=== PATIENT | male | born 1990 | race Caucasian/White ===

== ENCOUNTER 2019-03-29 06:02 | Observation (INO) ==
[2019-03-29 06:52] LABS: Basophils # 0.1 K/mcL (0.0-0.2); Basophils % 0.9 %; Eosinophils # 0.1 K/mcL (0.0-0.6); Eosinophils % 0.8 %; Hematocrit 49.5 % (37.5-50.1); Hemoglobin 16.7 g/dL (12.9-16.9); Immature Granulocytes % 0.4 % (0-4); Lymphocytes # 1.4 K/mcL (0.6-4.6); Lymphocytes % 17.9 %; Mean Corpuscular HGB Conc 33.7 g/dL (31.6-35.5); Mean Corpuscular Hemoglobin 29.9 pg (28.0-33.3); Mean Corpuscular Volume 88.6 fL (83.0-100.0); Mean Platelet Volume 9.8 fL (9.4-12.4); Monocytes # 0.5 K/mcL (0.0-1.3); Monocytes % 6.9 %; Neutrophils # 5.6 K/mcL (1.6-8.9); Platelet Count 278 K/mcL (140-400); Red Blood Count 5.59 M/mcL (4.19-5.50); Red Cell Distribution Width 12.4 % (11.5-14.5); Segmented Neutrophils % 73.1 %; White Blood Count 7.7 K/mcL (4.3-11.1)
--- NOTE | 2019-03-29 06:58 | Emergency Department Note ---
Disposition Clinical Impression: Biliary colic Intractable nausea and vomiting Qualifiers: Vomiting type: unspecified Qualified Code(s): R11.2 - Nausea with vomiting, unspecified Disposition: Admitted As Inpatient Condition: Fair Time of Disposition: 10:48 Abdominal Pain HPI - General Chief Complaint: ED Abdominal Pain Stated Complaint: Abd. Pain Time Seen by Provider: 03/29/19 06:18 Source: patient, family Mode of arrival: private vehicle Limitations: no limitations Nursing Notes Reviewed: Yes Vital Signs Reviewed: Yes - History of Present Illness HPI Narrative: Patient presents from home for evaluation of upper abdominal pain with nausea and vomiting for two weeks This is his third ER visit for the same. He was at [facility] last Thursday and had a CT done. He states that he was not diagnosed with anything but was given pain meds and nausea meds and sent home. Pt Subjective Complaint: abdominal pain Onset (ago): week(s) Consistency: constant, Worsening Location: diffuse, RUQ, epigastric Pain Severity: moderate Pain Scale: 6 Quality: cramping, aching, fullness Radiation: none Migration to: no migration Improves with: nothing Worsens with: vomiting Context: other (3rd visit for same - was seen at [facility] twice - states, "No diagnosis") Associated symptoms: Reports: nausea, vomiting, diarrhea, fever, chills. Denies: constipation, dysuria, hematemesis, hematochezia, melena, hematuria, anorexia, syncope Treatments prior to arrival: other (seen at [facility] twice. Had CT done Thursday. No results yet. ) - Related Data Home Medications Medication Instructions Recorded Confirmed Lisinopril [Zestril] 10 mg PO DAILY 03/29/19 03/29/19 Allergies Allergy/AdvReac Type Severity Reaction Status Date / Time Erythromycin Base Allergy See Verified 03/29/19 06:11 [From Pediazole] Comments Sulfa (Sulfonamide Allergy See Verified 03/29/19 06:11 Antibiotics) Comments Sulfisoxazole Allergy See Verified 03/29/19 06:11 [From Pediazole] Comments All systems ED: reviewed and negative except as stated. Review of Systems: As Per HPI Constitutional: Reports: as per HPI, fever, chills. Denies: weakness, weight change, night sweats Eyes: Denies: eye pain, eye discharge, vision change ENT ED: Denies: throat pain, congestion, dysphagia Cardiovascular: Denies: chest pain, palpitations, dyspnea on exertion Respiratory: Denies: cough, dyspnea, wheezes Gastrointestinal: Reports: as per HPI, abdominal pain, nausea, vomiting, diarrhea. Denies: constipation, hematemesis, melena, hematochezia Genitourinary: Denies: urgency, dysuria, frequency, hematuria, discharge, testicular pain, testicular mass Musculoskeletal: Denies: back pain, neck pain, joint swelling, arthralgia Integumentary: Denies: rash, lesions, pruritus Neurological: Denies: headache, weakness, vertigo Hematological/Lymphatic: Denies: easy bleeding, easy bruising, lymphadenopathy Abdominal Pain PMH - Past Medical History Medical history: Reports: hypertension Male Surgical History: Reports: appendectomy Psychiatric history: Reports: no psych history - Social History Smoking status: Never smoker Alcohol use: Reports: heavy Drug use: Reports: none Physical Exam - General Limitations: no limitations General appearance: alert, in no apparent distress - Head Head exam: atraumatic, normocephalic, normal inspection - Eye Eye exam: Present: normal appearance. Absent: scleral icterus, conjunctival injection, periorbital swelling - ENT ENT exam: mucous membranes dry - Neck Neck exam: Present: normal inspection, full ROM, trachea midline. Absent: meningismus, lymphadenopathy - Respiratory Respiratory exam: Present: normal lung sounds bilaterally. Absent: respiratory distress - Cardiovascular Cardiovascular exam: Present: regular rate, normal rhythm, normal heart sounds - Abdominal Exam Abdominal exam: Present: soft, tenderness, distention, diminished bowel sounds, Desir's sign. Absent: guarding, rebound, rigidity, Rovsing's sign, tenderness at McBurney's Point, ascites, mass, pulsatile mass, hernia - Extremities Exam Extremities exam: Present: normal inspection, full ROM. Absent: pedal edema - Back Exam Back exam: Present: normal inspection. Absent: CVA tenderness (R), CVA tenderness (L) - Neurological Exam Neurological exam: Present: alert, oriented X3, CN II-XII intact, normal gait - Psychiatric Psychiatric exam: Present: normal affect, normal mood - Skin Skin exam: Present: warm, dry, intact, normal color Course Course Narrative: Patient to the ED with family for evaluation of two weeks of abdominal pain with nausea, vomiting and intermittent diarrhea. The emesis has been bilious. No hematemesis, melena or hematochezia. He has had subjective fever and chills. On exam, he has normal vitals with the exception of mildly elevated blood pressure. He has a history of hypertension but has not been able to keep his BP medication down. He is afebrile. He is reclining on the bed, appears uncomfortable but nontoxic. He has tenderness to palpation in the right upper quadrant with positive Desir sign. No guarding or rebound tenderness. Records from [facility] were obtained. He had a normal CAT scan done on Thursday. This is his third visit for the same. Ultrasound and nausea meds ordered. Patient declines pain meds. ". Ultrasound shows biliary sludge and mild wall thickening, no pericholecystic fluid. Possible left lung effusion. The radiologist recommends PA and lateral chest x-ray and hepatobiliary scan. Patient's T bili is elevated. The remainder of his labs are unremarkable. He continues to have nausea and vomiting despite the Zofran. Additional meds ordered. He is also now requesting pain medication. This has been ordered. The surgicalist has been paged for consult. Case discussed with Dr. Pablito Guzman. She will accept the patient for admission. Vital Signs Temperature 98.2 F 03/29/19 06:12 Pulse Rate 90 03/29/19 06:12 Respiratory Rate 18 03/29/19 06:12 Blood Pressure 149/105 03/29/19 06:12 O2 Sat by Pulse Oximetry 98 03/29/19 06:12 Temperature 98.2 F 03/29/19 06:12 Pulse Rate 90 03/29/19 06:12 Respiratory Rate 18 03/29/19 06:12 Blood Pressure 149/105 03/29/19 06:12 O2 Sat by Pulse Oximetry 98 03/29/19 06:12 Oxygen Delivery Oxygen Delivery Room Air Abdominal Pain - Medical Records Medical records reviewed: Yes I reviewed the patient's medical records. - Lab Data Lab results reviewed: Yes I reviewed the patient's lab results. Lab results narrative: Laboratory Last Values WBC 7.7 K/mcL (4.3-11.1) 03/29/19 06:17 RBC 5.59 M/mcL (4.19-5.50) H 03/29/19 06:17 Hgb 16.7 g/dL (12.9-16.9) 03/29/19 06:17 Hct 49.5 % (37.5-50.1) 03/29/19 06:17 MCV 88.6 fL (83.0-100.0) 03/29/19 06:17 MCH 29.9 pg (28.0-33.3) 03/29/19 06:17 MCHC 33.7 g/dL (31.6-35.5) 03/29/19 06:17 RDW 12.4 % (11.5-14.5) 03/29/19 06:17 Plt Count 278 K/mcL (140-400) 03/29/19 06:17 MPV 9.8 fL (9.4-12.4) 03/29/19 06:17 Immature Gran % 0.4 % (0-4) 03/29/19 06:17 Seg Neutrophils % 73.1 % 03/29/19 06:17 Lymphocytes % 17.9 % 03/29/19 06:17 Monocytes % 6.9 % 03/29/19 06:17 Eosinophils % 0.8 % 03/29/19 06:17 Basophils % 0.9 % 03/29/19 06:17 Neutrophils # 5.6 K/mcL (1.6-8.9) 03/29/19 06:17 Lymphocytes # 1.4 K/mcL (0.6-4.6) 03/29/19 06:17 Monocytes # 0.5 K/mcL (0.0-1.3) 03/29/19 06:17 Eosinophils # 0.1 K/mcL (0.0-0.6) 03/29/19 06:17 Basophils # 0.1 K/mcL (0.0-0.2) 03/29/19 06:17 Sodium 139 mEq/L (136-145) 03/29/19 06:17 Potassium 3.8 mEq/L (3.5-5.1) 03/29/19 06:17 Chloride 100 mEq/L (98-107) 03/29/19 06:17 Carbon Dioxide 26 mEq/L (23-29) 03/29/19 06:17 BUN 10 mg/dL (6-20) 03/29/19 06:17 Creatinine 1.05 mg/dL (0.70-1.30) 03/29/19 06:17 Est GFR ( Amer) > 60 (> 60) 03/29/19 06:17 Est GFR (Non-Af Amer) > 60 (> 60) 03/29/19 06:17 BUN/Creatinine Ratio 10 (6-26) 03/29/19 06:17 Glucose 142 mg/dL (70-105) H 03/29/19 06:17 Calculated Osmolality 289 (280-300) 03/29/19 06:17 Calcium 9.7 mg/dL (8.6-10.3) 03/29/19 06:17 Total Bilirubin 1.3 mg/dL (0.3-1.0) H 03/29/19 06:17 Direct Bilirubin 0.1 mg/dL (0.0-0.2) 03/29/19 06:17 Indirect Bilirubin 1.2 mg/dL (0.0-1.2) 03/29/19 06:17 AST 20 Units/L (13-39) 03/29/19 06:17 ALT 20 Units/L (7-52) 03/29/19 06:17 Alkaline Phosphatase 64 Units/L (34-104) 03/29/19 06:17 Serum Total Protein 7.4 g/dL (6.4-8.9) 03/29/19 06:17 Albumin 4.7 g/dL (3.5-5.7) 03/29/19 06:17 Globulin 2.7 g/dL (2.4-3.5) 03/29/19 06:17 Albumin/Globulin Ratio 1.7 (1.1-2.2) 03/29/19 06:17 Amylase 23 Units/L (29-103) L 03/29/19 06:17 Lipase 10 Units/L (11-82) L 03/29/19 06:17 Urine Color Yellow (Yellow) 03/29/19 09:40 Urine Clarity Clear (Clear) 03/29/19 09:40 Urine pH 7.0 pH Units (5.0-8.0) 03/29/19 09:40 Ur Specific Centre 1.018 (1.010-1.025) 03/29/19 09:40 Urine Protein Negative mg/dL (Neg-Trace) 03/29/19 09:40 Urine Glucose (UA) Normal mg/dL (Normal) 03/29/19 09:40 Urine Ketones Negative mg/dL (Negative) 03/29/19 09:40 Urine Blood Negative (Negative) 03/29/19 09:40 Urine Nitrite Negative (Negative) 03/29/19 09:40 Urine Bilirubin Negative (Negative) 03/29/19 09:40 Urine Urobilinogen Normal mg/dL (Normal) 03/29/19 09:40 Ur Leukocyte Esterase Negative (Negative) 03/29/19 09:40 Ur Culture Indicated? NO (NO) 03/29/19 09:40 - Radiology Data Radiology results reviewed: Yes I reviewed the patient's radiology results. Gallbladder Ultrasound 03/29/19 07:38 IMPRESSION: Biliary sludge without stones. Mild gallbladder wall thickening however the gallbladder is partially contracted. Recommend nuclear medicine better biliary scan if there is strong clinical suspicion for gallbladder disease. Suspected left pleural effusion. Recommend further evaluation with PA and lateral upright departmental chest radiographs. RECOMMENDATIONS: Hepatobiliary scan. PA and lateral chest x-ray. D/ / Buddy Ma MD / Buddy Ma MD Interpreting Provider: Buddy Ma MD Chest X-Ray 03/29/19 09:31 IMPRESSION: No acute process. D/ / Tiffanie Scott MD / Tiffanie Scott MD Interpreting Provider: Tiffanie Scott MD
[2019-03-29 07:04] LABS: Alanine Aminotransferase 20 Units/L (7-52); Albumin 4.7 g/dL (3.5-5.7); Albumin/Globulin Ratio 1.7 (1.1-2.2); Alkaline Phosphatase 64 Units/L (34-104); Amylase 23 Units/L (29-103); Aspartate Amino Transferase 20 Units/L (13-39); BUN/Creatinine Ratio 10 (6-26); Bilirubin,Direct 0.1 mg/dL (0.0-0.2); Bilirubin,Indirect 1.2 mg/dL (0.0-1.2); Bilirubin,Total 1.3 mg/dL (0.3-1.0); Blood Urea Nitrogen 10 mg/dL (6-20); Calcium 9.7 mg/dL (8.6-10.3); Carbon Dioxide 26 mEq/L (23-29); Chloride 100 mEq/L (98-107); Globulin 2.7 g/dL (2.4-3.5); Glucose 142 mg/dL (70-105); Lipase 10 Units/L (11-82); Osmolality,Calculated 289 (280-300); Potassium 3.8 mEq/L (3.5-5.1); Sodium 139 mEq/L (136-145); Total Protein 7.4 g/dL (6.4-8.9); eGFR For African Americans > 60 (> 60); eGFR For Non-African Americans > 60 (> 60)
[2019-03-29] MEDS ORDERED: 0.9 % Sodium Chloride 1,000 ML IVC ONE ×2 (07:41→10:47)
[2019-03-29] MEDS ORDERED: Ondansetron 4 MG/2 ML VIAL IVP ONE ×2 (07:41→19:03)
[2019-03-29 09:50] LABS: Bilirubin,Urine Negative (Negative); Blood,Urine Negative (Negative); Clarity,Urine Clear (Clear); Color,Urine Yellow (Yellow); Glucose,Urine (UA) Normal (Normal); Ketones,Urine Negative (Negative); Leukocyte Esterase,Urine Negative (Negative); Nitrite,Urine Negative (Negative); Protein,Urine Negative (Neg-Trace); Specific Gravity,Urine 1.018 (1.010-1.025); Urobilinogen,Urine Normal (Normal)
[2019-03-29] MEDS ORDERED: Promethazine 25 MG in 0.9 % Sodium Chloride 50 ML IVPB ONE (10:47)
[2019-03-29] MEDS ORDERED: *HR* HYDROmorphone (PF) 1 MG/ML SYRINGE IVP ONE (10:47)
--- NOTE | 2019-03-29 14:25 | Acute Care Surgery H&P ---
Date of Encounter: 03/29/19 Time of Encounter: 14:20 Assessment and Plan (1) Symptomatic cholelithiasis Current Visit: Yes Status: Acute The assessment and plan as outlined above was discussed with the patient and/or family members who expressed understanding and agreement. All questions were answered. Pt diagnosis of symptomatic cholelithiasis is discussed. Laparoscopic Cholecystectomy is recommended. Procedure for the surgery, risks and benefits are discussed in detail. Possible known complications for Laparoscopic Cholecystectomy are bleeding, infection, bile duct injury, bile leak, small intestine or stomach injury, stroke, DVT/PE, OH or . Pt understands these risks, which in this case are . Pt wishes to proceed with surgery as soon as possible. Informed consent is obtained. Pt condition is stable. Surgery is scheduled. (2) Biliary colic Current Visit: Yes Status: Acute The assessment and plan as outlined above was discussed with the patient and/or family members who expressed understanding and agreement. All questions were answered. History of Present Illness Chief complaint: RUQ abdominal pain HPI: This 29 y/o male pt presents to [facility] ED after 2 visits to [facility] ED on 2 previous occasions in the last week c/o severe RUQ abdominal pain. Pt reports pain is severe and unrelenting. Pt c/o epigastric pain as well. Pt reports pain radiates into back. Pt reports intractable nausea and vomiting. Pt denies changes in BM. Pt denies CP or SOB. Pt denies fever. Past Med Surg Social Fam HX - Past Medical History Medical history: hypertension Psychiatric history: no psych history - Social History Smoking Status: Never smoker Smokeless Tobacco Status: Yes Alcohol use: heavy Drug use: none - Family History Father Hx Family Cardiac Disorders: Yes (HTN, HLD) Hx Family Endocrine Disorder: Yes (DM) Mother Hx Family Cardiac Disorders: Yes (HLD, HTN) Medications and Allergies Lisinopril [Zestril] 10 mg PO DAILY 03/29/19 [History] 3 Allergy/AdvReac Type Severity Reaction Status Date / Time Erythromycin Base Allergy See Verified 03/29/19 06:11 [From Pediazole] Comments Sulfa (Sulfonamide Allergy See Verified 03/29/19 06:11 Antibiotics) Comments Sulfisoxazole Allergy See Verified 03/29/19 06:11 [From Pediazole] Comments Review of Systems All systems PM: The remainder of the systems were reviewed and are negative - Constitutional as per HPI, fatigue, no anorexia, no chills, no fever(s), no night sweats, no weakness - EENT Nose, mouth and throat: dry mouth, nasal congestion, nasal discharge, sinus pain, sinus pressure, sore throat, no dysphagia - Cardiovascular no chest pain, no diaphoresis, no dyspnea, no edema - Respiratory no cough, no dyspnea, no wheezing - Gastrointestinal abdominal pain, bloating, diarrhea, nausea, vomiting, no constipation, no hematemesis, no hematochezia - Genitourinary no difficulty urinating, no dysuria, no flank pain, no urinary frequency - Musculoskeletal no back pain, no joint swelling, no limited range of motion, no neck pain - Integumentary dry skin, no pruritus, no rash, no wounds, no jaundice - Neurological no confusion, no dizziness, no focal weakness, no weakness - Psychiatric no anxiety, no depression - Endocrine fatigue - Hematologic/Lymphatic no easy bleeding, no easy bruising General Surgery Exam Initial Vital Signs Temp Pulse Resp BP Pulse Ox 98.2 F 90 18 149/105 98 03/29/19 06:12 03/29/19 06:12 03/29/19 06:12 03/29/19 06:12 03/29/19 06:12 - General physical appearance no distress, moderate pain. negative: jaundice - Eyes PERRL, normal ocular movement. negative: icteric - ENT no congestion, dry mucosa. negative: nasal discharge - Neck no masses, trachea midline, no lymphadectomy, no venous distension - Respiratory normal expansion, normal respiratory effort - Cardiovascular Cardiovascular exam: Present: RRR. Absent: JVD - Abdomen Abdomen general surgery: Present: bowel sounds present, soft, tender. Absent: distended Abdominal Tenderness: Present: RUQ - Genitourinary Present: normal penis with no external lesions - Integumentary Integumentary general surgery: Present: warm and dry - Neurologic Present: CN 2-12 grossly intact, normal coordination - Musculoskeletal Present: normal posture - Psychiatric Psychiatric general surgery: Present: A&Ox3, appropriate Results - Labs 03/29/19 06:17 03/29/19 06:17 Abnormal lab results RBC 5.59 M/mcL (4.19-5.50) H 03/29/19 06:17 Glucose 142 mg/dL (70-105) H 03/29/19 06:17 Total Bilirubin 1.3 mg/dL (0.3-1.0) H 03/29/19 06:17 Amylase 23 Units/L (29-103) L 03/29/19 06:17 Lipase 10 Units/L (11-82) L 03/29/19 06:17 Diabetes panel 03/29/19 Range/Units 06:17 Sodium 139 (136-145) mEq/L Potassium 3.8 (3.5-5.1) mEq/L Chloride 100 (98-107) mEq/L Carbon Dioxide 26 (23-29) mEq/L BUN 10 (6-20) mg/dL Creatinine 1.05 (0.70-1.30) mg/dL Glucose 142 H (70-105) mg/dL Calcium 9.7 (8.6-10.3) mg/dL AST 20 (13-39) Units/L ALT 20 (7-52) Units/L Alkaline Phosphatase 64 (34-104) Units/L Albumin 4.7 (3.5-5.7) g/dL Calcium panel 03/29/19 Range/Units 06:17 Calcium 9.7 (8.6-10.3) mg/dL Albumin 4.7 (3.5-5.7) g/dL Pituitary panel 03/29/19 Range/Units 06:17 Sodium 139 (136-145) mEq/L Potassium 3.8 (3.5-5.1) mEq/L Chloride 100 (98-107) mEq/L Carbon Dioxide 26 (23-29) mEq/L BUN 10 (6-20) mg/dL Creatinine 1.05 (0.70-1.30) mg/dL Glucose 142 H (70-105) mg/dL Calcium 9.7 (8.6-10.3) mg/dL Adrenal panel 03/29/19 Range/Units 06:17 Sodium 139 (136-145) mEq/L Potassium 3.8 (3.5-5.1) mEq/L Chloride 100 (98-107) mEq/L Carbon Dioxide 26 (23-29) mEq/L BUN 10 (6-20) mg/dL Creatinine 1.05 (0.70-1.30) mg/dL Glucose 142 H (70-105) mg/dL Calcium 9.7 (8.6-10.3) mg/dL Total Bilirubin 1.3 H (0.3-1.0) mg/dL AST 20 (13-39) Units/L ALT 20 (7-52) Units/L Alkaline Phosphatase 64 (34-104) Units/L Albumin 4.7 (3.5-5.7) g/dL All other labs normal. - Imaging CT scan - abdomen: report reviewed CT scan - pelvis: report reviewed US - abdomen: image reviewed (Biliary sludge without stones. Mild gallbladder wall thickening however the gallbladder is partially contracted.) - VTE Reasons for not Prescribing Prophylaxis: Treatment not Indicated - Low risk for VTE
[2019-03-29] MEDS ORDERED: 0.9 % Sodium Chloride 1,000 ML IVC SCH (14:30)
[2019-03-29] MEDS ORDERED: Acetaminophen IV 1,000 MG/100 ML INFUS..BTL IVPB SCH (18:00)
--- NOTE | 2019-03-29 19:00 | Anesthesia Evaluation PreOp ---
Date of Encounter: 03/29/19 Time of Encounter: 19:00 - Past History Planned Operation: Lap Cholecystectomy Cardiac History: HTN Pulmonary History: Denies Any Significant HX OVER THE ROAD DRIVER History: Denies Any Significant HX Other Medical History: Denies Any Significant HX, Other (Obese) Anesthesia History: No Prior Anesthetic Complications Alcohol Use: rarely Drug use: none Medications and Allergies Lisinopril [Zestril] 10 mg PO DAILY 03/29/19 [History] Allergy/AdvReac Type Severity Reaction Status Date / Time Erythromycin Base Allergy See Verified 03/29/19 06:11 [From Pediazole] Comments Sulfa (Sulfonamide Allergy See Verified 03/29/19 06:11 Antibiotics) Comments Sulfisoxazole Allergy See Verified 03/29/19 06:11 [From Pediazole] Comments - Meds/Allergy Pre-op Review Medications Reviewed: Yes Allergies Reviewed: Yes Beta Blockers on Current Med List: No Anesthesia Results - Labs 03/29/19 06:17 03/29/19 06:17 Anesthesia Exam O2 Sat Height 1.75 m Weight 119.748 kg Weight 117.934 kg O2 Sat by Pulse Oximetry 95 O2 Sat by Pulse Oximetry 94 O2 Sat by Pulse Oximetry 99 O2 Sat by Pulse Oximetry 97 O2 Sat by Pulse Oximetry 98 O2 Sat by Pulse Oximetry 99 O2 Sat by Pulse Oximetry 98 O2 Sat by Pulse Oximetry 100 O2 Sat by Pulse Oximetry 99 O2 Sat by Pulse Oximetry 99 O2 Sat by Pulse Oximetry 98 O2 Sat by Pulse Oximetry 98 Vital Signs Temp Pulse Resp BP Pulse Ox 98.2 F 90 18 149/105 98 03/29/19 06:12 03/29/19 06:12 03/29/19 06:12 03/29/19 06:12 03/29/19 06:12 Height: 5'9 Weight: 264 lbs - HEENT Pupil (Motor): Pupils equal, EOMI Mallampati: III Teeth: Normal Oral Opening: Less than or equal to 3 - OVER THE [address] DRIVER LOC: Oriented OVER THE ROAD DRIVER Motor: Normal RUE, Normal LUE, Normal RLE, Normal LLE, Normal Face OVER THE ROAD DRIVER Sensory: Normal: RUE, LUE, RLE, LLE, Face - Cardiac Rhythm: Regular Murmur: None JVD: No Carotid Bruit: No - Pulmonary Breath Sounds: bilateral Clear Respiratory Effort: Symmetrical Anesthesia Assess/Plan ASA Score: 2 Level of consciousness: Cooperative, Oriented Anesthetic Plan: General Autologous Blood: No Monitoring Plan: Standard Monitors Recovery Plan: PACU (Discussed GA, agrees to proceed)
[2019-03-29] MEDS ORDERED: *HR* OxyCODONE Immed Rel 5 MG TABLET PO PRN (19:03)
[2019-03-29] MEDS ORDERED: *HR* HYDROmorphone (PF) 1 MG/ML SYRINGE IVP PRN (19:03)
[2019-03-29] MEDS ORDERED: *HR* Promethazine 25 MG/ML VIAL IVP PRN ×2 (19:03→21:16)
[2019-03-29] MEDS ORDERED: Famotidine 20 MG/2 ML VIAL ONE (19:07)
--- NOTE | 2019-03-29 19:14 | Operative Note ---
Date of procedure: 03/29/19 Pre-op diagnosis: symptomatic cholelithiasis Post-op diagnosis: same Procedure: Laparoscopic cholecystectomy Complications: none Anesthesia: GETA Surgeon: Harvey Guzman Was there an mobile sales assistant present: Yes Cement Storage Worker: Torie Adorno Estimated blood loss (cc): 10 Specimen: gallbladder Condition: stable Disposition: PACU Procedure in Detail: This 29 year-old male was taken to the operating room and placed in the supine position. The anterior abdominal wall is prepped and draped in the usual sterile fashion. A 1-2 cm curvilinear incision is made in the infraumbilical area and subcutaneous tissue was dissected down to anterior rectus fascia. Fascia is grasped with a Noreen clamp, stay sutures were placed in the fascia is divided. Posterior rectus fascia and peritoneum were elevated and divided in the same manner. A Lefty port is inserted. Under direct visualization after the injection of 0.5% Marcaine the x3 5 mm ports are inserted in the right subcostal space under direct visualization. Exploration of the intraabdominal cavity reveals an abnormal gallbladder. The patient is placed in reverse Trendelenburg position and rotated to the left. The gallbladder is grasped and retracted in cephalad direction. It is also grasped and retracted in the lateral direction. The cystic duct was carefully identified circumferentially dissected doubly clipped and divided between clips. The cystic artery is carefully identified and circumferentially dissected and divided between clips. The gallbladder is dissected off the liver bed using electrocautery. Hemostasis was perfected using electrocautery. The gallbladder is removed from the intra-abdominal cavity using an Endo Catch bag. Copious irrigation is carried out in the intra- abdominal cavity, Booker's pouch and the gallbladder fossa. The pneumoperitoneum was allowed to escape under direct visualization. The ports were removed also under direct visualization. The fascia at the infraumbilical incision is closed using 0 Vicryl sutures. All skin incisions are closed using 4-0 Monocryl subcuticular stitches. Steri-Strips are placed. Sterile dressing is placed. Patient tolerated procedure well was taken to the PACU in good condition.
[2019-03-29] MEDS ORDERED: Lidocaine -MPF 2% 2 ML VIAL ONE (19:18)
[2019-03-29] MEDS ORDERED: *HR* Rocuronium Bromide 50 MG/5 ML VIAL ONE (19:18)
[2019-03-29] MEDS ORDERED: Ondansetron 4 MG/2 ML VIAL ONE (19:18)
[2019-03-29] MEDS ORDERED: *HR* Succinylcholine 200 MG/10 ML VIAL IVP ONE (19:18)
[2019-03-29] MEDS ORDERED: *HR* FentaNYL (PF) 100 MCG/2 ML VIAL ONE (19:18)
[2019-03-29] MEDS ORDERED: Dexamethasone 4 MG/ML VIAL ONE (19:18)
[2019-03-29] MEDS ORDERED: *HR* Propofol 200 MG/20 ML VIAL IVP ONE (19:18)
[2019-03-29] MEDS ORDERED: Lidocaine -MPF 4% 5 ML AMPUL ONE (19:22)
[2019-03-29] MEDS ORDERED: Neostigmine Methylsulfate 3 MG/3 ML SYRINGE ONE (20:14)
--- NOTE | 2019-03-29 21:17 | Anesthesia Evaluation Post Op ---
Date of Encounter: 03/29/19 Time of Encounter: 21:00 - Vital Signs Vital Signs: Vital Signs/O2 Sat/Glucose, Most Current Temp Pulse Resp BP Pulse Ox 03/29/19 21:00 72 16 136/89 100 03/29/19 20:50 97.3 F L 92 16 122/85 100 03/29/19 20:40 61 12 122/81 100 03/29/19 20:30 97.3 F L 65 12 118/82 100 03/29/19 19:04 71 16 132/81 96 - Lungs Lungs: Clear Ascult./Percussion - Airway Airway: Non-obstructed - Cardiovascular Regular Rate - Mental Status Mental Status: Alert & Oriented, Answers Appropriately - Pain Pain Scale: 0 - Nausea Vomiting Nausea Vomiting: Not Present - Hydration Hydration: Ice chips - Discharge PostOp Status: Transfer Patient to floor
[2019-03-30] MEDS: ceFAZolin 1,000 MG in Water for inj. (sterile) 10 ML IVP SCH ×2 (00:11→08:50)
[2019-03-30] MEDS: Acetaminophen IV 1,000 MG/100 ML INFUS..BTL IVPB SCH ×3 (00:13→13:25)
[2019-03-30] MEDS: Ondansetron 4 MG/2 ML VIAL IVP SCH ×3 (00:13→13:24)
[2019-03-30 11:09] VITALS: BP 118/65
--- NOTE | 2019-03-30 13:33 | Discharge Summary ---
Orders not resulted at time of discharge: Pending orders 03/29/19 19:59 Surgical Pathology [PTH] Routine Date of Encounter: 03/30/19 Time of Encounter: 13:31 General Surgery Exam Initial Vital Signs Temp Pulse Resp BP Pulse Ox 98.2 F 90 18 149/105 98 03/29/19 06:12 03/29/19 06:12 03/29/19 06:12 03/29/19 06:12 03/29/19 06:12 - Eyes PERRL, normal ocular movement - Abdomen Abdomen general surgery: Present: bowel sounds present, soft, tender (Mild pericisional pain) - Neurologic Present: CN 2-12 grossly intact - Hospital Course Hospital course: Mr. Morillo is a 29 year old male who presented to [facility] with symptoms of the symptomatic cholelithiasis or biliary colic. He underwent a laparoscopic cholecystectomy without difficulty. On postop day 1 he was able to tolerate a regular diet without any nausea or vomiting and was subsequently discharged home with instructions to follow-up with [place] [facility] on 04/12/2090 at 8:30 AM Time spent discussing smoking cessation with patient: 3 to 10 minutes - Time Spent with Patient Total time spent providing and/or coordinating discharge services: Less than 30 minutes Specific discharge activities: No heavy lifting greater than 20-25lbs for two weeks. - Discharge Medications Prescriptions: New OxyCODONE/APAP 5/325 [Percocet 5/325 MG] 1 each PO Q6HR PRN 7 Days #28 tablet PRN Reason: Pain No Action Lisinopril [Zestril] 10 mg PO DAILY Pantoprazole Sodium [Protonix] 40 mg PO DAILY Home Medications: Lisinopril [Zestril] 10 mg PO DAILY 03/29/19 [History] OxyCODONE/APAP 5/325 [Percocet 5/325 MG] 1 each PO Q6HR PRN 7 Days #28 tablet 03/30/19 [Rx] Pantoprazole Sodium [Protonix] 40 mg PO DAILY 03/30/19 [History] Allergies/Adverse Reactions: Allergy/AdvReac Type Severity Reaction Status Date / Time Erythromycin Base Allergy See Verified 03/30/19 11:07 [From Pediazole] Comments Sulfa (Sulfonamide Allergy See Verified 03/30/19 11:07 Antibiotics) Comments Sulfisoxazole Allergy See Verified 03/30/19 11:07 [From Pediazole] Comments Date of admission: 03/29/19 11:39 Primary care physician: PCP NONE Discharging clinician: Ej Parrish Anticipated date of discharge: 03/30/19 - Impressions ITS Impressions Gallbladder Ultrasound 03/29/19 07:38 IMPRESSION: Biliary sludge without stones. Mild gallbladder wall thickening however the gallbladder is partially contracted. Recommend nuclear medicine better biliary scan if there is strong clinical suspicion for gallbladder disease. Suspected left pleural effusion. Recommend further evaluation with PA and lateral upright departmental chest radiographs. RECOMMENDATIONS: Hepatobiliary scan. PA and lateral chest x-ray. D/ / Buddy Ma MD / Buddy Ma MD Interpreting Provider: Buddy Ma MD Chest X-Ray 03/29/19 09:31 IMPRESSION: No acute process. D/ / Tiffanie Scott MD / Tiffanie Scott MD Interpreting Provider: Tiffanie Scott MD - Patient Status Disposition: Home, Self-Care Condition: Fair Overall status at discharge: patient is progressing back to baseline - Discharge Instructions Follow Up With: NONE,PCP [Primary Care Provider] - Forms: ED Satisfaction Letter, Work/School Release Additional Instructions: No heavy lifting greater than 20-25 lbs for two weeks. May shower. May use ice packs to the incisions for the first two days and as needed. - Diet and Activity Diet: advance to your usual diet
== END 2019-03-30 14:38 | disposition home or self-care (01) ==
LOC: 3BNU 06:02 → EMEROOARM 06:02 → 3BNU 13:05
PROVIDERS: ADMIT Surgery; ATTEND Surgery